=== PATIENT | male | born 1960 | race Caucasian/White ===

== ENCOUNTER 2018-06-08 19:18 | Inpatient (IN) | payer BC ==
[2018-06-08] VITALS (87 sets, daily range): BP systolic 153; BP diastolic 90; PULSE 91; TEMP 98.6; O2SAT 94–100
[~2018-06-08] VITALS: Ht 172.7 cm; Wt 127.2 kg
[~2018-06-08 19:18] MED LIST: ALTACE 10MG TAB10 MG PO; FLAGYL500 MG PO; LEVAQUIN 750MG750 M1 PO; LOPRESSOR 225 MG/TAB PO; NORCO 325 MG-7.1 TAB PO; ZOCOR 80MG80 MG PO
[2018-06-08 19:45] LABS: BASO # 0.1 (0.0-0.2); BASO % 0.4 % (0.0-2.0); EOS # 0.1 (0.0-0.7); EOS % 0.5 % (0-4.0); GRAN # 10.4 (1.4-6.5); GRAN % 74.3 % (42.2-75.2); HEMATOCRIT 47.5 % (42.0-52.0); HEMOGLOBIN 15.8 g/dl (13.5-18.0); LYMPH # 2.3 (1.2-3.4); LYMPH % 16.1 % (20.0-51.0); MEAN CELL VOLUME 91 fl (80.0-100.0); MEAN CORPUSCULAR HEMOGLOBIN 30 pg (27.0-31.0); MEAN CORPUSCULAR HGB CONC 33 g/dl (33.0-37.0); MEAN PLATELET VOLUME 9.9 fl (7.4-10.4); MONO # 1.1 (0.1-0.6); MONO % 7.6 % (1.7-9.3); PLATELET COUNT 165 K/mm3 (130-400); RED BLOOD COUNT 5.22 M/mm3 (4.20-5.60); REDCELL DISTRIBUTION WIDTH-CV 12.8 % (11.5-14.5)
[2018-06-08 19:52] LABS: INR 1.2 (0.8-3.0); PROTHROMBIN TIME 13.1 SECONDS (9.7-12.8)
[2018-06-08 19:54] LABS: PARTIAL THROMBOPLASTIN TIME 32.6 SECONDS (26.0-37.0)
[2018-06-08 19:56] LABS: BILIRUBIN,TOTAL 0.9 mg/dL (0.0-1.0); CALCIUM 9.1 mg/dL (8.4-10.2); CREATININE, serum 1.06 mg/dL (0.66-1.25); TOTAL PROTEIN 7.1 gm/dL (6.4-8.2)
[2018-06-08] MEDS ORDERED: LIPITOR 40MG TA40 MG PO (20:01)
[2018-06-08] MEDS ORDERED: PLAVIX 75MG TAB75 MG PO (20:01)
[2018-06-08 20:10] LABS: TROPONIN-I 0.047 ng/mL (0.000-0.034)
--- NOTE | 2018-06-08 21:50 | NUR ---
Pt report received by Travis BETANCUR in ED.
--- NOTE | 2018-06-08 22:30 | NUR ---
Pt arrived to ICU08 via ED stretcher X1 staff assist with personal belongings. Pt had jeans and shoes in place and transfered with steady gait and stand by assist to new bed location. Pt denies any chest pain or SOA at this time. Monitors were put in place. Pt requested use of a urinal. Spouse arrived with pt at this time.
[2018-06-09] VITALS (698 sets, daily range): BP systolic 108–157; BP diastolic 59–107; PULSE 75–99; TEMP 97.9–98.1; O2SAT 89–100
--- NOTE | 2018-06-09 | NUR ---
Pt continues to deny chest pain although reported of a headache earlier "although I know its from the Nitro." PRN tylenol order was received and provided to the pt while pt raised the HOB. Spouse left the unit shortly following pt admission with reports of arriving approximately 0700 per staff recommendations due to not being able to provide a specific time of potential cardiac cath. Pt is pleasant and agreeable to POC as discussed through out admission process. Reports of being familiar with procedure of cardiac cath due to prior procedure in 2002.
[2018-06-09] MEDS ORDERED: NITROSTAT0.4 MG/TAB SL (00:08)
[2018-06-09 02:00] LABS: MAGNESIUM 1.6 mg/dL (1.6-2.3)
[2018-06-09 02:17] LABS: TROPONIN-I 6 HR POST INITIAL 0.861 ng/mL (0.000-0.034)
[2018-06-09] MEDS ORDERED: NASACORT OTC NS (03:22)
[2018-06-09 05:06] LABS: BASO % 0.3 % (0.0-2.0); EOS # 0.1 (0.0-0.7); EOS % 0.8 % (0-4.0); GRAN # 7.1 (1.4-6.5); GRAN % 70.9 % (42.2-75.2); HEMATOCRIT 43.2 % (42.0-52.0); HEMOGLOBIN 14.3 g/dl (13.5-18.0); LYMPH # 1.8 (1.2-3.4); LYMPH % 17.8 % (20.0-51.0); MEAN CELL VOLUME 92 fl (80.0-100.0); MEAN CORPUSCULAR HEMOGLOBIN 30 pg (27.0-31.0); MEAN CORPUSCULAR HGB CONC 33 g/dl (33.0-37.0); MONO # 0.9 (0.1-0.6); PLATELET COUNT 142 K/mm3 (130-400); REDCELL DISTRIBUTION WIDTH-CV 13.1 % (11.5-14.5)
[2018-06-09 05:15] LABS: CALCIUM 8.4 mg/dL (8.4-10.2); CREATININE, serum 0.8 mg/dL (0.66-1.25); POTASSIUM 3.8 mmol/L (3.4-5.0)
[2018-06-09 05:29] LABS: TROPONIN-I 1.1 ng/mL (0.000-0.034)
--- NOTE | 2018-06-09 07:00 | NUR ---
Bedside report provided to Kaylin BETANCUR. Pt alert and involved in report at this time.
--- NOTE | 2018-06-09 07:15 | NUR ---
Report received from Hetal BETANCUR and care resumed.
[2018-06-09 07:21] LABS: COLLECTION METHOD CLEAN CATCH
[2018-06-09 07:33] LABS: MUCOUS Present /lpf; PH 5 (5-8); SQUAMOUS EPITHELIAL 0-2 /hpf; URINE APPEARANCE Turbid; URINE BACTERIA None Seen /hpf; URINE BILIRUBIN Negative (NEGATIVE); URINE BLOOD Negative (NEGATIVE); URINE COLOR Amber; URINE GLUCOSE 2+ (NEGATIVE); URINE KETONE Negative (NEGATIVE); URINE LEUKOCYTE ESTERASE Negative (NEGATIVE); URINE NITRATE Negative (NEGATIVE); URINE PROTEIN(semi-quant) Negative (NEGATIVE); URINE RBC 0-2 /hpf
--- NOTE | 2018-06-09 08:40 | NUR ---
Assessment complete. See charting. Pt does state having slight pain/pressure in chest rated 1-2 out of 10. IV nitro increased from 15 mcg/min to 20 mcg/min and pt stated relief. No further concerns. Am meds and labs reviewed. Waiting on cardiology consult at this time. Will continue to follow.
--- NOTE | 2018-06-09 11:00 | NUR ---
Dr Steven in to see pt. Stated to keep NPO and plan for heart cath. Checking with concrete plant laborer for time. Will continue to follow.
--- NOTE | 2018-06-09 12:40 | NUR ---
Pt to boat laborer.
--- NOTE | 2018-06-09 13:09 | NUR ---
ALL MEDS GIVEN WITH VERBAL ORDER FROM MD. SEE MERGE FOR ADMIN TIMES. ALLENS TEST POSITIVE.
--- NOTE | 2018-06-09 14:10 | NUR ---
Pt returned from rn labor and delivery. Pt a/o. Denies any pain. VSS. TR band noted to right wrist. 16ml air instilled per rn labor and delivery report. Pt instructed on importance of not pushing, pulling with wrist. No concerns at this time, will continue to follow.
[2018-06-09] MEDS ORDERED: ZESTRIL 10MG10 MG PO (15:16)
[2018-06-09] MEDS ORDERED: LIPITOR 80MG80 MG PO (15:16)
[2018-06-09 15:45] LABS: PARTIAL THROMBOPLASTIN TIME 45.8 SECONDS (26.0-37.0)
--- NOTE | 2018-06-09 16:10 | NUR ---
Report called to Cee BETANCUR at [facility]. Pt to transfer by EMS for further work up per CV surgery.
--- NOTE | 2018-06-09 16:55 | NUR ---
[facility] here for transport. Report given and pt loaded onto cot. TR band still in place with 10 ml noted and syringe sent with pt.
== END 2018-06-09 16:55 | disposition short-term general hospital (02) | DRG 281 ==
LOC: COL.ER 19:18 → ICU 20:22
PROVIDERS: Emergency Medicine; Internal Medicine Cardiovascular Disease; Nurse Practitioner; ADMIT Family Medicine
PROC: B2111ZZ Fluoroscopy of Multiple Coronary Arteries using Low Osmolar Contrast (ICD-10-PCS; principal; 2018-06-09)
PROC: B2151ZZ Fluoroscopy of Left Heart using Low Osmolar Contrast (ICD-10-PCS; 2018-06-09)
PROC: 4A023N7 Measurement of Cardiac Sampling and Pressure, Left Heart, Percutaneous Approach (ICD-10-PCS; 2018-06-09)
DX: I21.4 Non-ST elevation (NSTEMI) myocardial infarction (principal); Z68.41 Body mass index [BMI] 40.0-44.9, adult; I10 Essential (primary) hypertension; I25.10 Atherosclerotic heart disease of native coronary artery without angina pectoris; E11.65 Type 2 diabetes mellitus with hyperglycemia; Z95.5 Presence of coronary angioplasty implant and graft; E66.9 Obesity, unspecified
CPT/HCPCS: OP; 99223-AI; 99239; G0378; J1644; J1650; J1815; J2250; J3010; J3475; J7030; Q9967